=== PATIENT | male | born 2000 | race American Indian/Alaskan Native ===

== ENCOUNTER 2019-05-21 09:21 | Emergency (ER) | payer SELFPAY ==
--- NOTE | 2019-05-21 10:08 | EDM.PDOC ---
ED HPI GENERAL MEDICAL PROBLEM - General Chief Complaint: Eye Problems Stated Complaint: EYE PAIN Time Seen by Provider: 05/21/19 09:38 Source of Information: Reports: Patient, RN Notes Reviewed - History of Present Illness INITIAL COMMENTS - FREE TEXT/NARRATIVE: 19-year-old male comes in with left eye discomfort. He suffered injury to his eye yesterday doing some "fencing". Says the end of a non-barbed fence wire struck his left face with injury to his left eye. There was immediate pain and scratchiness type sensation that continued the remainder of yesterday. With the discomfort continuing this morning he felt he had best have this checked. He has had some blurriness of vision left eye. He does not wear or use contacts or glasses. There's been no bleeding or drainage from this injury. No other area of injury. Left Eye Pain Score (Numeric/FACES): 4 - Related Data Allergies Allergy/AdvReac Type Severity Reaction Status Date / Time No Known Allergies Allergy Verified 05/21/19 09:36 Home Meds: Home Meds . [No Known Home Meds] 05/21/19 [History] Past Medical History HEENT History: Reports: Hard of Hearing Other HEENT History: hearing loss R) ear. Neurological History: Reports: Seizure, Other (See Below) Other Neuro History: at age 10. - Infectious Disease History Infectious Disease History: Reports: Chicken Pox Social & Family History - Tobacco Use Smoking Status *Q: Never Smoker Second Hand Smoke Exposure: No - Caffeine Use Caffeine Use: Reports: Coffee - Recreational Drug Use Recreational Drug Use: No ED ROS GENERAL - Review of Systems Review Of Systems: See Below Constitutional: Reports: No Symptoms HEENT: Reports: Eye Pain Respiratory: Reports: No Symptoms Cardiovascular: Reports: No Symptoms GI/Abdominal: Denies: Nausea, Vomiting Skin: Reports: No Symptoms Neurological: Reports: No Symptoms ED EXAM GENERAL W FULL EYE - Physical Exam Exam: See Below General Appearance: Alert, No Apparent Distress Conjunctiva & Sclera: Left: Injected, Bilateral: Other (small area of increased redness L medial conjunctiva, no laceration injury visible) Cornea Exam: Bilateral: Normal Appearance, Other (no visible injury to the cornea) Pupillary Reaction: Bilateral: Brisk Anterior Chamber: Bilateral: Normal Appearance Nose: Normal Inspection Head: Atraumatic Neck: Supple Respiratory/Chest: No Respiratory Distress Skin Exam: Warm, Dry, Normal Color, No Rash Course - Vital Signs Text/Narrative:: Vision right eye 2015, vision left eye 20/40. Last Recorded V/S: Last Vital Signs Temp 98.6 F 05/21/19 09:30 Pulse 62 05/21/19 09:30 Resp 18 05/21/19 09:30 BP 128/66 05/21/19 09:30 Pulse Ox 99 05/21/19 09:30 Departure - Departure Time of Disposition: 10:03 Disposition: Home, Self-Care 01 Condition: Fair Clinical Impression: Abrasion of sclera of left eye - Discharge Information Referrals: PCP,None [Primary Care Provider] - Forms: ED Department Discharge Additional Instructions: Erythromycin antibiotic ointment, small amount L eye 3 times daily for 5 day. Tylenol 3-4 times daily if needed for discomfort. Rest eye, as discussed this will likely take another 1-2 days to heal. See your regular eye doctor on of the Optometrists in town if your eye is not back to normal or almost back to normal by Thursday 2 days from now. Sepsis Event Note - Evaluation Sepsis Screening Result: No Definite Risk - Focused Exam Date Exam was Performed: 05/22/19 Time Exam was Performed: 07:46
== END 2019-05-21 10:25 | disposition home or self-care (01) ==
LOC: JD.ED 09:21
CPT/HCPCS: 99282; 99283

== ENCOUNTER 2024-10-29 20:15 | Emergency (ER) | payer SELFPAY ==
[2024-10-29] MEDS: Diphtheria,Pertussis(Acell),Tetanus Vaccine 0.5 ML Syringe IM ONE (21:26)
[2024-10-29] MEDS: Lidocaine/Epineph/Tetracaine 3 ML Syringe TOP ONE (21:27)
== END 2024-10-29 22:39 | disposition home or self-care (01) ==
LOC: JD.ED 20:15
DX: S91.114A Laceration without foreign body of right lesser toe(s) without damage to nail, initial encounter (principal); Z23 Encounter for immunization; W22.8XXA Striking against or struck by other objects, initial encounter; Y93.01 Activity, walking, marching and hiking
CPT/HCPCS: 12001; 90471; 90715; 99282; A9270; J2003; 99283